=== PATIENT | male | born 1970 | race Two or more races ===

== ENCOUNTER 2023-11-19 15:52 | Emergency (ER) | payer BC, OTHER, SELFPAY ==
[2023-11-19 15:59] VITALS: BP 155/99; PULSE 75; TEMP 36.6; O2SAT 98; BMI 39.1
--- NOTE | 2023-11-19 16:15 | ED.GENADUL1 ---
HPI HPI - General Adult General Chief complaint: Eye Problems Stated complaint: INJURY, FACE Time Seen by Provider: 11/19/23 15:59 Source: patient Mode of arrival: walk-in Limitations: no limitations History of Present Illness HPI narrative: Pt is a 53yo male who says he was using a centerless grinder tender at home, it kicked back and it hit the patient in the face. The blade somehow became dislodged, and it hit pt nose and then in the right eye. Pt has a laceration to the right eyeball, to the 1000 oclock position. pt says he has no loss of vision, double vision, or vision changed. pt drove to the ER. Pt doesnt know when the last time he had a tetanus shot was. VIEW OF SYSTEMS: Unless otherwise stated in this report the patient's positive and negative responses for review of systems for constitutional, eyes, ENT, cardiovascular, respiratory, gastrointestinal, neurological, , musculoskeletal, and integument systems and related systems to the presenting problem are either stated in the history of present illness or were not pertinent or were negative for the symptoms and/or complaints related to the presenting medical problem vital signs reviewed and patient is not hypoxic. ? General: The patient appears well and in no apparent distress. Patient is resting comfortably on cart. Not toxic, lethargic, or listless. Skin: Warm, dry, no pallor noted. There is no rash noted. superficial abrasions to nose Head: Normocephalic, atraumatic Eye: Normal conjunctiva on the left eye, no drainage, EOMI. PERRL. Right eye, laceration to the 1000oclock position through the conjuncitva and possibly the sclera. NO obvious globe rupture, no chemosis, pt has moderate subconjunctival hemorrage to the lateral superior and inferior aspects of the right eye, pictures were taken to send to Dr Murillo. Upper and lower eyelids were inverted, no foreign body was seen. No active bleeding noted. no signs of globe rupture, no retrobulbular hematoma. Ears, Nose, Mouth, and Throat: oral mucosa is moist. Nares patent. Mouth without vesicles. Cardiovascular: Regular Rate and Rhythm, no murmurs, gallops, or rubs Respiratory: Patient is in no distress, no accessory muscle use, lungs are clear to auscultation, no wheezing, rales or rhonchi Musculoskeletal: The patient has full range of motion of all extremities and joints with no difficulty. Patient has no motor, no sensory deficits. Neurological: A&O x4, normal speech, no focal neurological deficits. Psychiatric: Cooperative, not intoxicated Related Data Home Medications ?Medication ?Instructions ?Recorded ?Confirmed diclofenac sodium 75 mg 75 mg PO Q12H 11/19/23 11/19/23 tablet,delayed release metformin 850 mg tablet 850 mg PO DAILY 11/19/23 11/19/23 tizanidine 4 mg tablet 4 mg PO DAILY PRN muscle spasticity 11/19/23 11/19/23 Allergies Allergy/AdvReac Type Severity Reaction Status Date / Time No Known Drug Allergies Allergy Verified 11/19/23 16:02 Opioid HPI Opioid Management Most Recent Opioid Data: Last Pain Scale 5 11/19/23 16:09 Exam Constitutional Vital Signs, click to edit/add: Last Vital Signs Temp 97.9 F 11/19/23 15:59 Pulse 71 11/19/23 17:25 Resp 18 11/19/23 17:25 BP 145/81 H 11/19/23 17:25 Pulse Ox 98 11/19/23 17:25 Course Vital Signs Vital signs: Vital Signs Temperature 97.9 F 11/19/23 15:59 Pulse Rate 75 11/19/23 15:59 Respiratory Rate 18 11/19/23 15:59 Blood Pressure 155/99 H 11/19/23 15:59 Pulse Oximetry 98 11/19/23 15:59 Temperature 97.9 F 11/19/23 15:59 Pulse Rate 71 11/19/23 17:25 Respiratory Rate 18 11/19/23 17:25 Blood Pressure 145/81 H 11/19/23 17:25 Pulse Oximetry 98 11/19/23 17:25 Medical Decision Making MDM Narrative Medical decision making narrative: There were multiple phone calls made to Max Mason and Dr Williamson who never called back. I spoke to Dr Dominguez from [facility], recommending transfer to trauma hospital. I called the [facility] as well, they are closed. [facility] eye doctor quality controller is not available as well. I spoke to My EYE DOCTOR, to Dr Carter (sp?) and she could not see the pt today. I then spoke to Dr Murillo, eye physician; who was quality controller for [facility], and he agreed to the transfer. Dr Perez was the trauma doctor who is accepting for [facility] as well for accepting for trauma. IOP was checked, on the right eye after 4 drops of tetracaine were placed. 1700 visual acuity was documented by Mane RN. Critical care time 45 minutes exclusive from separate billable procedures that were performed. The following was considered in the determination of critical care but not limited to the level of medical decision making, intensive cardiac and/or respiratory monitoring, frequent vital sign monitoring, evaluation of laboratory studies, evaluation of radiographic studies, oxygen monitoring, and constant monitoring and speaking to family at bedside. Discharge Plan Discharge Chief Complaint: Eye Problems Clinical Impression: Laceration of eye, right, Abrasion of skin of face Patient Disposition: [facility] Time of Disposition Decision: 17:33 Discharge Location: [facility] Discharge location: ER to ER, Dr Perez trauma surgeon, Dr Murillo eye physician Condition: Serious
[2023-11-19] MEDS: ADACEL DIPH,PERTUSS(ACELL),TET VAC/PF 0.5 ML ADULT SYRINGE IM (17:03)
[2023-11-19] MEDS: TETRACAINE HCL 0.5% OP SOL 80 DROP/4 ML BOTTLE OP (17:16)
[2023-11-19 17:25] VITALS: BP 145/81; PULSE 71; O2SAT 98
== END 2023-11-19 18:02 | disposition short-term general hospital (02) ==
PROVIDERS: Emergency Provider Emergency Medicine
DX: S05.31XA Ocular laceration without prolapse or loss of intraocular tissue, right eye, initial encounter (principal); S00.81XA Abrasion of other part of head, initial encounter; W20.8XXA Other cause of strike by thrown, projected or falling object, initial encounter; Z23 Encounter for immunization
CPT/HCPCS: 90471; 90715; 99285